=== PATIENT | male | born 1970 | race Asian ===

== ENCOUNTER 2017-03-27 08:35 | Emergency (ER) | payer OTHER ==
--- NOTE | ~2017-03-27 | CR262 ---
[facility] A Service of [facility] & [facility] RADIOLOGY TEXT RESULTS PATIENT: LIZA GUTIERREZ LOCATION: CFTX : 66 UNIT #: [id number] AGE: [address]: Melba Faust SEX: M ORDER DR: [id number] [facility] [address] [place], [place] [address] [id number] MR#: [id number] Acc #: [id number] NAME: LIZA GUTIERREZ : 1970 SEX: M STUDY DATE/TIME: 03/27/2017 8:49 UNIT: [facility] ROOM: STUDY DESCRIPTION: CR Toe 2 Views Great Lt Attending Physician: Melba Fauts Pa-C Referring Physician: Self Referral-Refer Use Only Ordering Physician: Er [facility]icians Primary Care Physician: Primary Care Physician No MEDICAL IMAGING REPORT This report is preliminary unless electronic signature is present EXAM Three views left great toe. DATE: 03/27/2017 HISTORY Left great toe pain and swelling since last night after tripping and falling. COMPARISON None. FINDINGS No fracture or dislocation or significant osteoarthritic change. No retained radiopaque foreign body is seen. IMPRESSION Normal 3 views left great toe. Dictated by... Gemma Lobato M.D. THIS IS AN ELECTRONICALLY VERIFIED REPORT Gemma Lobato M.D. at 03/28/2017 8:46 AM DAO/sue TD: 03/27/2017 11:27 JOB #: [id number] MEDICAL IMAGING REPORT Page 1 of 1 COPY
== END 2017-03-27 09:50 | disposition home or self-care (01) ==
LOC: CFTX 08:35 → CED 08:35 → CFTX 09:21
DX: S90.112A Contusion of left great toe without damage to nail, initial encounter (principal); W18.42XA Slipping, tripping and stumbling without falling due to stepping into hole or opening, initial encounter; Y92.009 Unspecified place in unspecified non-institutional (private) residence as the place of occurrence of the external cause
CPT/HCPCS: 29405; 73660; 99283